=== PATIENT | male | born 1980 | race Caucasian/White ===

== ENCOUNTER 2017-01-11 10:58 | Day surgery (SDC) | payer OTHER ==
[~2017-01-11] VITALS: Ht 188 cm; Wt 218.2 kg
[~2017-01-11 10:58] MED LIST: DOXYCYCLINE MO100 MG PO; GABAPENTIN300 MG PO; HYDROCHLOROTHIA25 MG PO; LISINOPRIL10 MG PO; NAPROXEN500 MG PO; VIBRAMYCIN100 MG PO
[2017-01-11 11:34] VITALS: BP 146/86
[2017-01-11 12:49] LABS: METH RESISTANT S AUREUS PCR NEGATIVE (NEGATIVE); PROBE CHECK PASS; SPECIMEN PROCESSING CONTROL PASS
[2017-01-11 14:45] VITALS: BP 136/63
[2017-01-11 15:36] VITALS: BP 111/63
== END 2017-01-11 15:45 | disposition home or self-care (01) ==
LOC: SDC 10:58
PROVIDERS: Orthopaedic Surgery Sports Medicine
PROC: 01N50ZZ Release Median Nerve, Open Approach (ICD-10-PCS; principal; 2017-01-11)
DX: G56.02 Carpal tunnel syndrome, left upper limb (principal); I10 Essential (primary) hypertension; G47.30 Sleep apnea, unspecified; E66.9 Obesity, unspecified; Z68.44 Body mass index [BMI] 60.0-69.9, adult; Z86.718 Personal history of other venous thrombosis and embolism; Z82.49 Family history of ischemic heart disease and other diseases of the circulatory system; Z83.3 Family history of diabetes mellitus; F17.210 Nicotine dependence, cigarettes, uncomplicated
CPT/HCPCS: 87641; J0690; J1100; J2250; J2405; S0020

== ENCOUNTER 2017-01-20 14:42 | Emergency (ER) | payer OTHER ==
[~2017-01-20] VITALS: Ht 188 cm; Wt 216.5 kg
[2017-01-20] MEDS ORDERED: MOTRIN800 MG PO (17:53)
[2017-01-20 17:59] VITALS: BP 114/72
== END 2017-01-20 18:15 | disposition home or self-care (01) ==
LOC: EME 14:42
DX: I80.02 Phlebitis and thrombophlebitis of superficial vessels of left lower extremity (principal); S70.12XA Contusion of left thigh, initial encounter; X58.XXXA Exposure to other specified factors, initial encounter; Z98.890 Other specified postprocedural states; F17.200 Nicotine dependence, unspecified, uncomplicated; I10 Essential (primary) hypertension
CPT/HCPCS: 93971; 99281; 99284